=== PATIENT | male | born 1990 | race Hispanic/Latino ===

== ENCOUNTER 2019-01-01 19:32 | Emergency (ER) | payer OTHER ==
[~2019-01-01] VITALS: Ht 172.7 cm; Wt 67.1 kg
[2019-01-01] MEDS ORDERED: NORCO 5-325 TA1 EACH PO (20:26)
== END 2019-01-01 20:35 | disposition home or self-care (01) ==
LOC: ED 19:32
PROC: 2W3JX1Z Immobilization of Right Finger using Splint (ICD-10-PCS; principal; 2019-01-01)
DX: M20.011 Mallet finger of right finger(s) (principal)
CPT/HCPCS: 29130; 73130; 99283-25

== ENCOUNTER 2023-06-12 16:23 | Emergency (ER) | payer OTHER ==
[~2023-06-12] VITALS: Ht 172.7 cm; Wt 90.7 kg
[~2023-06-12 16:23] MED LIST: NORCO 5-325 TA1 EACH PO
--- OUTSIDE RECORDS SUMMARY | 2023-06-12 16:27 | XMS ---
PreManage Notification: NATALIE REINA Security Donation Worker Events No recent Security Events currently on file [facility] There are no care providers on record at this time. Kevon has no Care Guidelines for this patient. Linda VISIT COUNT (12 MO.) 1 [facility] TOTAL 1 NOTE: Visits indicate total known visits. ED/C VISIT TRACKING (12 MO.) 06/12/2023 16:24 ADIS Wade OR TYPE: Emergency COMPLAINT: - OVER MEDICATED INPATIENT VISIT TRACKING (12 MO.) No inpatient visits to display in this time frame [email or web address]
[2023-06-12] MEDS ORDERED: DULOXETINE HCL30 MG PO (16:43)
[2023-06-12] MEDS ORDERED: GABAPENTIN300 MG PO (16:43)
[2023-06-12] MEDS ORDERED: BUPROPION XL300 MG PO (16:44)
[2023-06-12 18:37] VITALS: BP 123/95
== END 2023-06-12 18:37 | disposition home or self-care (01) ==
LOC: ED 16:23
DX: T48.3X1A Poisoning by antitussives, accidental (unintentional), initial encounter (principal); T44.4X1A Poisoning by predominantly alpha-adrenoreceptor agonists, accidental (unintentional), initial encounter
CPT/HCPCS: 99283